=== PATIENT | male | born 1960 | race Caucasian/White ===

== ENCOUNTER 2017-09-17 09:29 | Day surgery (SDC) | payer OTHER, SELFPAY ==
[2017-09-17] MEDS ORDERED: MIDAZOLAM INJ 2 MG/2 ML VIAL (J2250) As Ordered (09:39)
[2017-09-17] MEDS ORDERED: PROPOFOL 200 MG/20 ML VIAL As Ordered (09:39)
[2017-09-17] MEDS ORDERED: fentaNYL 100 MCG/2 ML INJECTION (J3010) As Ordered (09:39)
[2017-09-17] MEDS ORDERED: LIDOCAINE 2% INJ 100 MG/5 ML SDV (FOR ANES.) As Ordered (09:39)
[2017-09-17] MEDS: LR 1,000 ML IV (10:35)
[2017-09-17] MEDS: OXYMETAZOLINE NASAL SPRAY (AFRIN) As Ordered (12:54)
[2017-09-17] MEDS ORDERED: ONDANSETRON 4MG/2ML VIAL (J2405) As Ordered (12:57)
[2017-09-17] MEDS ORDERED: SUCCINYLCHOLINE 100 MG/5 ML SYRINGE (J0330) As Ordered (12:57)
[2017-09-17] MEDS ORDERED: KETOROLAC 60 MG/2 ML VIAL (J1885) As Ordered (12:57)
[2017-09-17] MEDS ORDERED: dexameTHASONE 4 MG/ML 1ML VIAL (J1100) As Ordered ×2 (12:57)
[2017-09-17] MEDS: LIDOCAINE W/EPINEPHRINE 1% 20ML VIAL As Ordered (13:12)
[2017-09-17] MEDS ORDERED: LR 1,000 ML IV ×2 (13:45→14:00)
[2017-09-17] MEDS ORDERED: ONDANSETRON 4MG/2ML VIAL (J2405) IV (13:45)
[2017-09-17] MEDS ORDERED: PERCOCET 5MG/325MG TAB PO (13:45)
[2017-09-17] MEDS ORDERED: fentaNYL 100 MCG/2 ML INJECTION (J3010) IV (13:45)
[2017-09-18] MEDS ORDERED: OMEPRAZOLE 20 MG CAP PO (09:00)
== END 2017-09-17 15:25 | disposition home or self-care (01) ==
LOC: M SDC 09:29
DX: R49.0 Dysphonia (principal); J38.3 Other diseases of vocal cords; M54.2 Cervicalgia; R06.83 Snoring; G47.9 Sleep disorder, unspecified; F10.20 Alcohol dependence, uncomplicated; Z72.0 Tobacco use; Z87.81 Personal history of (healed) traumatic fracture
CPT/HCPCS: 31576

== ENCOUNTER 2017-10-14 15:36 | Outpatient (RCR) | payer OTHER | END 2017-10-27 | LOC: M ONCR 15:36 | DX: C32.9 Malignant neoplasm of larynx, unspecified (principal) | CPT/HCPCS: 77334 ==

== ENCOUNTER → 2017-10-14 | Outpatient (CLI) | payer OTHER | LOC: M ONCR 13:58 | DX: C32.0 Malignant neoplasm of glottis (principal); F17.210 Nicotine dependence, cigarettes, uncomplicated | CPT/HCPCS: G0463 ==

== ENCOUNTER 2017-10-28 09:35 | Outpatient (RCR) | payer OTHER | END 2017-11-27 | LOC: M ONCR 09:35 | DX: C32.9 Malignant neoplasm of larynx, unspecified (principal) | CPT/HCPCS: 77300 ==

== ENCOUNTER 2017-11-28 10:55 | Outpatient (RCR) | payer OTHER | END 2017-12-27 | LOC: M ONCR 10:55 | DX: C32.9 Malignant neoplasm of larynx, unspecified (principal) | CPT/HCPCS: 77336 ==

== ENCOUNTER → 2018-01-14 | Outpatient (CLI) | payer OTHER | LOC: M ONCR 10:30 | DX: C32.9 Malignant neoplasm of larynx, unspecified (principal) | CPT/HCPCS: G0463 ==

== ENCOUNTER 2018-04-07 10:35 | Outpatient (RCR) | payer OTHER | END 2018-04-29 | LOC: M ST 10:35 | DX: C44.320 Squamous cell carcinoma of skin of unspecified parts of face (principal); R49.0 Dysphonia | CPT/HCPCS: 92610 ==

== ENCOUNTER → 2018-04-14 | Outpatient (CLI) | payer OTHER | LOC: M PLARAD 10:32 | DX: C32.0 Malignant neoplasm of glottis (principal) | CPT/HCPCS: 78815 ==

== ENCOUNTER 2018-05-04 10:00 | Outpatient (RCR) | payer OTHER | END 2018-05-29 | LOC: M ST 10:00 | DX: C44.320 Squamous cell carcinoma of skin of unspecified parts of face (principal) ==

== ENCOUNTER → 2018-09-08 | Outpatient (CLI) | payer OTHER ==
--- NOTE | 2018-09-08 18:38 | REP ---
W by low body PET CT scan for restaging malignant tumor was: Comparison is the whole body PET CT scan dated 04/14/2018. Whole-body scanning is performed from skull base to the upper thighs. Neck and supraclavicular areas: Previously there was a tracheostomy tube. On the study today the tracheostomy tube has been removed. However, the tracheostomy persists. The increased uptake noted in the neck previously is no longer present. There are no hypermetabolic foci in the neck. Chest: On the prior study there was non hypermetabolic uptake in a left axillary lymph node. This uptake is no longer present. There are no hypermetabolic foci in the chest. Abdomen, pelvis and upper thighs: There are no hypermetabolic foci. Impression: There are no hypermetabolic foci. The previously identified hypermetabolic activity in the neck and in a left axillary lymph node is no longer present. The study is performed with 8.3 mCi of F 18 FDG. Electronically Signed by Morgan Monson MD 09/08/2018 06:30 P
== END ==
LOC: M PLARAD 12:36
PROVIDERS: ATTEND Otolaryngology
DX: Z48.89 Encounter for other specified surgical aftercare (principal); C32.0 Malignant neoplasm of glottis
CPT/HCPCS: 78815; A9552

== ENCOUNTER 2018-09-17 11:00 | Outpatient (RCR) | payer OTHER | END 2018-09-27 | LOC: M ST 11:00 | PROVIDERS: ATTEND Internal Medicine | DX: C44.320 Squamous cell carcinoma of skin of unspecified parts of face (principal); C32.0 Malignant neoplasm of glottis; R49.0 Dysphonia ==

== ENCOUNTER 2018-11-30 10:32 | Outpatient (RCR) | payer OTHER | END 2018-12-27 | LOC: M ST 10:32 | PROVIDERS: ATTEND Internal Medicine | DX: Z44.8 Encounter for fitting and adjustment of other external prosthetic devices (principal); Z93.0 Tracheostomy status ==

== ENCOUNTER 2019-01-13 09:16 | Outpatient (RCR) | payer OTHER | END 2019-01-27 | LOC: M ST 09:16 | PROVIDERS: ATTEND Internal Medicine | DX: Z44.8 Encounter for fitting and adjustment of other external prosthetic devices (principal); Z93.0 Tracheostomy status ==

== ENCOUNTER → 2019-02-18 | Outpatient (CLI) | payer OTHER | LOC: M ST 14:16 | PROVIDERS: ATTEND Internal Medicine | DX: Z44.8 Encounter for fitting and adjustment of other external prosthetic devices (principal) ==

== ENCOUNTER 2019-05-26 08:30 | Outpatient (RCR) | payer OTHER | END 2019-05-29 | LOC: M ST 08:30 | PROVIDERS: ATTEND Internal Medicine | DX: Z51.89 Encounter for other specified aftercare (principal); C44.320 Squamous cell carcinoma of skin of unspecified parts of face ==

== ENCOUNTER 2019-07-20 12:41 | Outpatient (RCR) | payer OTHER | END 2019-07-30 | LOC: M ST 12:41 | PROVIDERS: ATTEND Internal Medicine | DX: C44.320 Squamous cell carcinoma of skin of unspecified parts of face (principal); Z79.899 Other long term (current) drug therapy; Z92.3 Personal history of irradiation ==

== ENCOUNTER 2019-10-22 11:09 | Outpatient (RCR) | payer OTHER | END 2019-10-28 | LOC: M ST 11:09 | PROVIDERS: ATTEND Internal Medicine | DX: C44.320 Squamous cell carcinoma of skin of unspecified parts of face (principal); Z92.3 Personal history of irradiation; Z44.8 Encounter for fitting and adjustment of other external prosthetic devices; Z93.0 Tracheostomy status ==

== ENCOUNTER → 2019-12-10 | Outpatient (CLI) | payer OTHER ==
[~2019-12-10] MED LIST: SYNT75TA PO
== END ==
LOC: M LABSMTC 13:56
PROVIDERS: ATTEND Anesthesiology
DX: Z01.818 Encounter for other preprocedural examination (principal); Z11.59 Encounter for screening for other viral diseases; Z03.818 Encounter for observation for suspected exposure to other biological agents ruled out
CPT/HCPCS: C9803; U0003

== ENCOUNTER 2019-12-13 07:38 | Day surgery (SDC) | payer OTHER ==
[~2019-12-13] VITALS: Ht 177.8 cm; Wt 80.2 kg
[~2019-12-13 07:38] MED LIST changes: +BALANCED SALT IRRIGATION SOLUTION 500ML BAG (FOR OR EYE MACHINE) As Ordered ONE; +CEFUROXIME 1MG/0.1ML INTRACAMERAL INJ As Ordered ONE; +CYCLOPENTOLATE 2% OPHTH SOLN 2ML BTL OS ONE; +HEALON DUET PRO(HEALON 10MG/ML 0.55ML & HEALON ENDOCOAT 30MG/ML 0.85ML) As Ordered ONE; +LIDOCAINE 1% SDV 5ML VIAL As Ordered ONE; +LIDOCAINE 3.5 % 1ML OPHTH TOPICAL GEL OU ONE; +MIDAZOLAM INJ 2MG/2ML VIAL (J2250 PER 1MG) As Ordered ONE; +OFLOXACIN 0.3 % (OCUFLOX) OPTH SOL 5ML OS ONE; +PHENYLEPHRINE 2.5% OPHTH SOL 2ML OS ONE; +PHENYLEPHRINE HCL 10 % OPHTH. SOL 5ML OS PRN; +POVIDONE-IODINE 5% OPHTH PREP SOL 30ML As Ordered ONE; +TROPICAMIDE 1% OPHTH SOLN 2ML OS ONE; +fentaNYL 250 MCG/5 ML INJECTION (J3010) As Ordered ONE
[2019-12-13] MEDS ORDERED: POVIDONE-IODINE 5% OPHTH PREP SOL 30ML As Ordered ONE (08:41)
[2019-12-13 09:25] VITALS: BP 128/77
--- NOTE | 2019-12-15 05:33 | RO ---
DATE OF PROCEDURE: 12/13/2019 PREPROCEDURE DIAGNOSIS: Age-related nuclear cataract left eye. POSTPROCEDURE DIAGNOSIS: Age-related nuclear cataract left eye. PROCEDURE PERFORMED: Phacoemulsification and posterior chamber intraocular lens implantation left eye. Lens used was an [id number], 13.5 diopter. SURGEON: Corie Andrea MD [employer]OP HANDLE ASSEMBLER: ANESTHESIA: Topical with sedation. DESCRIPTION OF PROCEDURE: The patient was prepped and draped in the usual fashion. A lid speculum was placed between the lids. The eye was fixated. A stab incision was made to the anterior chamber, and 1% nonpreserved lidocaine was instilled. Then, viscoelastic was instilled. The eye was re-fixated. A 2.75 mm sapphire keratome was used to make a clear corneal temporal limbal incision. Capsulorrhexis was begun with a 30-gauge bent needle and then carried out in a circular fashion with capsulorrhexis forceps. The lens was hydrodissected, and then the phacoemulsification unit was used to make a groove in the nucleus in two meridians. The nucleus was then cracked into four quadrants. Each quadrant was removed with the phacoemulsification unit. Any remaining cortex was removed with the irrigation and aspiration (I and A) unit. Capsular bag was refilled with viscoelastic. A posterior chamber intraocular lens was placed in the capsular bag without difficulty. Any remaining viscoelastic was removed with the I and A unit. The wound was hydrated, and Miochol and cefuroxime were instilled into the anterior chamber. The patient tolerated the procedure well and went to the recovery room in stable condition.
== END 2019-12-13 09:39 | disposition home or self-care (01) ==
LOC: M SDC 07:38
PROVIDERS: ATTEND Ophthalmology
DX: H25.12 Age-related nuclear cataract, left eye (principal); E03.9 Hypothyroidism, unspecified; Z79.899 Other long term (current) drug therapy
CPT/HCPCS: 66984; 92015; J2250; J3010

== ENCOUNTER 2019-12-31 13:57 | Outpatient (RCR) | payer OTHER ==
[~2019-12-31 13:57] MED LIST changes: -BALANCED SALT IRRIGATION SOLUTION 500ML BAG (FOR OR EYE MACHINE) As Ordered ONE; -CEFUROXIME 1MG/0.1ML INTRACAMERAL INJ As Ordered ONE; -CYCLOPENTOLATE 2% OPHTH SOLN 2ML BTL OS ONE; -HEALON DUET PRO(HEALON 10MG/ML 0.55ML & HEALON ENDOCOAT 30MG/ML 0.85ML) As Ordered ONE; -LIDOCAINE 1% SDV 5ML VIAL As Ordered ONE; -LIDOCAINE 3.5 % 1ML OPHTH TOPICAL GEL OU ONE; -MIDAZOLAM INJ 2MG/2ML VIAL (J2250 PER 1MG) As Ordered ONE; -OFLOXACIN 0.3 % (OCUFLOX) OPTH SOL 5ML OS ONE; -PHENYLEPHRINE 2.5% OPHTH SOL 2ML OS ONE; -PHENYLEPHRINE HCL 10 % OPHTH. SOL 5ML OS PRN; -POVIDONE-IODINE 5% OPHTH PREP SOL 30ML As Ordered ONE; -TROPICAMIDE 1% OPHTH SOLN 2ML OS ONE; -fentaNYL 250 MCG/5 ML INJECTION (J3010) As Ordered ONE
== END 2020-01-28 ==
LOC: M ST 13:57
PROVIDERS: ATTEND Internal Medicine
DX: C44.320 Squamous cell carcinoma of skin of unspecified parts of face (principal); Z92.3 Personal history of irradiation; Z44.8 Encounter for fitting and adjustment of other external prosthetic devices; Z93.0 Tracheostomy status

== ENCOUNTER 2020-04-11 14:04 | Outpatient (RCR) | payer OTHER | END 2020-04-29 | LOC: M ST 14:04 | PROVIDERS: ATTEND Internal Medicine | DX: C44.320 Squamous cell carcinoma of skin of unspecified parts of face (principal); Z92.3 Personal history of irradiation; Z44.8 Encounter for fitting and adjustment of other external prosthetic devices; Z93.0 Tracheostomy status ==

== ENCOUNTER → 2020-05-27 | Outpatient (CLI) | payer OTHER | LOC: M LABSMTC 08:25 | PROVIDERS: ATTEND Anesthesiology | DX: Z01.812 Encounter for preprocedural laboratory examination (principal); Z20.828 Contact with and (suspected) exposure to other viral communicable diseases ==

== ENCOUNTER 2020-06-01 10:35 | Day surgery (SDC) | payer OTHER ==
[~2020-06-01] VITALS: Ht 177.8 cm; Wt 83.5 kg
[~2020-06-01 10:35] MED LIST changes: +NS 1,000 ML IV ONE
[2020-06-01] MEDS ORDERED: LIDOCAINE 2% 100MG/5ML SDV (FOR ANES.) As Ordered ONE (11:20)
[2020-06-01] MEDS ORDERED: propofoL 200 MG/20 ML VIAL As Ordered ONE (11:20)
--- NOTE | 2020-06-01 12:46 | ROOR ---
Patient Name: Jose Hylton Procedure Date: 06/01/2020 12:24 PM Date of : 1960 Age: 60 Room: [facility] Gender: Male Note Status: Finalized Procedure: Colonoscopy Indications: Screening for colorectal malignant neoplasm Providers: Noe Pratt Jr, MD Referring MD: ROSITA BECKER MD Requesting Provider: Medicines: Propofol per Anesthesia Complications: No immediate complications. Procedure: Pre-Anesthesia Assessment: - Prior to the procedure, a History and Physical was performed, and patient medications and allergies were reviewed. The patient is competent. The risks and benefits of the procedure and the sedation options and risks were discussed with the patient. All questions were answered and informed consent was obtained. Patient identification and proposed procedure were verified by the physician and the nurse in the pre-procedure area and in the procedure room. Mental Status Examination: alert and oriented. Airway Examination: normal oropharyngeal airway and neck mobility. Respiratory Examination: clear to auscultation. CV Examination: normal. ASA Grade Assessment: II - A patient with mild systemic disease. After reviewing the risks and benefits, the patient was deemed in satisfactory condition to undergo the procedure. The anesthesia plan was to use moderate sedation / analgesia (conscious sedation). Immediately prior to administration of medications, the patient was re-assessed for adequacy to receive sedatives. The heart rate, respiratory rate, oxygen saturations, blood pressure, adequacy of pulmonary ventilation, and response to care were monitored throughout the procedure. The physical status of the patient was re-assessed after the procedure. The Colonoscope was introduced through the anus and advanced to the cecum, identified by appendiceal orifice and ileocecal valve. The colonoscopy was performed without difficulty. The patient tolerated the procedure well. The quality of the bowel preparation was adequate. Findings: The recto-sigmoid colon, descending colon, transverse colon, ascending colon, cecum, appendiceal orifice and ileocecal valve appeared normal. Multiple small and large-mouthed diverticula were found in the sigmoid colon. A small polyp was found in the rectum. The polyp was removed with a cold snare. Resection and retrieval were complete. For hemostasis, one hemostatic clip was successfully placed. There was no bleeding at the end of the procedure. Impression: - The recto-sigmoid colon, descending colon, transverse colon, ascending colon, cecum, appendiceal orifice and ileocecal valve are normal. - Diverticulosis in the sigmoid colon. - One small polyp in the rectum, removed with a cold snare. Resected and retrieved. Clip was placed. Recommendation: - Discharge patient to home (ambulatory). - Repeat colonoscopy in 5 years for surveillance. Procedure Code(s): --- Professional --- 40028, Colonoscopy, flexible; with removal of tumor(s), polyp(s), or other lesion(s) by snare technique Diagnosis Code(s): --- Professional --- Z12.11, Encounter for screening for malignant neoplasm of colon K62.1, Rectal polyp K57.30, Diverticulosis of large intestine without perforation or abscess without bleeding CPT copyright 2019 [employer]. All rights reserved. The codes documented in this report are preliminary and upon economic analyst review may be revised to meet current compliance requirements. Noe Pratt MD Noe Pratt Jr, MD 06/01/2020 12:45:41 PM Electronically signed by Noe Pratt Jr, MD Number of Addenda: 0 Note Initiated On: 06/01/2020 12:24 PM Estimated Blood Loss: Estimated blood loss: none.
[2020-06-01 13:10] VITALS: BP 138/91
== END 2020-06-01 13:26 | disposition home or self-care (01) ==
LOC: M OPP 10:35
PROVIDERS: ATTEND Surgery
DX: Z12.11 Encounter for screening for malignant neoplasm of colon (principal); K57.30 Diverticulosis of large intestine without perforation or abscess without bleeding; K62.1 Rectal polyp; E03.9 Hypothyroidism, unspecified; Z79.899 Other long term (current) drug therapy; Z85.21 Personal history of malignant neoplasm of larynx; Z87.891 Personal history of nicotine dependence

== ENCOUNTER 2020-09-05 09:30 | Outpatient (RCR) | payer OTHER ==
[~2020-09-05 09:30] MED LIST changes: -NS 1,000 ML IV ONE
== END 2020-09-27 ==
LOC: M ST 09:30
PROVIDERS: ATTEND Internal Medicine
DX: C44.320 Squamous cell carcinoma of skin of unspecified parts of face (principal); Z92.3 Personal history of irradiation; Z44.8 Encounter for fitting and adjustment of other external prosthetic devices; Z93.0 Tracheostomy status

== ENCOUNTER 2020-12-21 14:05 | Outpatient (RCR) | payer OTHER | END 2020-12-27 | LOC: M ST 14:05 | PROVIDERS: ATTEND Internal Medicine | DX: C44.320 Squamous cell carcinoma of skin of unspecified parts of face (principal); Z92.3 Personal history of irradiation; Z44.8 Encounter for fitting and adjustment of other external prosthetic devices ==

== ENCOUNTER → 2021-04-06 | Outpatient (CLI) | payer OTHER | LOC: M ST 10:16 | PROVIDERS: ATTEND Otolaryngology | DX: Z44.8 Encounter for fitting and adjustment of other external prosthetic devices (principal) ==

== ENCOUNTER 2021-08-02 08:01 | Outpatient (RCR) | payer OTHER | END 2021-08-27 | LOC: M ST 08:01 | PROVIDERS: ATTEND Family Medicine | DX: Z90.02 Acquired absence of larynx (principal); Z96.3 Presence of artificial larynx ==

== ENCOUNTER 2021-10-03 08:58 | Outpatient (RCR) | payer OTHER | END 2021-10-27 | LOC: M ST 08:58 | PROVIDERS: ATTEND Family Medicine | DX: C44.320 Squamous cell carcinoma of skin of unspecified parts of face (principal); Z92.3 Personal history of irradiation; Z44.8 Encounter for fitting and adjustment of other external prosthetic devices; Z93.0 Tracheostomy status ==

== ENCOUNTER 2021-12-12 10:17 | Outpatient (RCR) | payer OTHER | END 2021-12-27 | LOC: M ST 10:17 | PROVIDERS: ATTEND Family Medicine | DX: Z90.02 Acquired absence of larynx (principal); Z96.3 Presence of artificial larynx ==

== ENCOUNTER 2022-02-05 08:24 | Outpatient (RCR) | payer OTHER | END 2022-02-27 | LOC: M ST 08:24 | PROVIDERS: ATTEND Family Medicine | DX: Z90.02 Acquired absence of larynx (principal); Z96.3 Presence of artificial larynx ==

== ENCOUNTER 2022-04-03 08:27 | Outpatient (RCR) | payer OTHER | END 2022-04-29 | LOC: M ST 08:27 | PROVIDERS: ATTEND Family Medicine | DX: Z90.02 Acquired absence of larynx (principal); Z96.3 Presence of artificial larynx ==

== ENCOUNTER 2022-06-20 07:27 | Outpatient (RCR) | payer OTHER | END 2022-06-29 | LOC: M ST 07:27 | PROVIDERS: ATTEND Family Medicine | DX: Z90.02 Acquired absence of larynx (principal); Z96.3 Presence of artificial larynx ==

== ENCOUNTER 2022-09-11 14:02 | Outpatient (RCR) | payer OTHER | END 2022-09-27 | LOC: M ST 14:02 | PROVIDERS: ATTEND Family Medicine | DX: Z96.3 Presence of artificial larynx (principal) ==

== ENCOUNTER 2023-02-17 09:15 | Outpatient (RCR) | payer OTHER | END 2023-02-27 | LOC: M ST 09:15 | PROVIDERS: ATTEND Otolaryngology | DX: Z96.3 Presence of artificial larynx (principal) ==

== ENCOUNTER 2023-06-17 10:54 | Outpatient (RCR) | payer OTHER, MEDICARE | END 2023-06-29 | LOC: M ST 10:54 | PROVIDERS: ATTEND Otolaryngology | DX: Z96.3 Presence of artificial larynx (principal) ==

== ENCOUNTER 2023-07-18 10:50 | Outpatient (RCR) | payer OTHER | END 2023-07-30 | LOC: M ST 10:50 | PROVIDERS: ATTEND Otolaryngology | DX: Z96.3 Presence of artificial larynx (principal) ==

== ENCOUNTER 2023-09-09 08:50 | Outpatient (RCR) | payer OTHER | END 2023-09-28 | LOC: M ST 08:50 | PROVIDERS: ATTEND Otolaryngology | DX: Z96.3 Presence of artificial larynx (principal) ==

== ENCOUNTER 2023-11-07 09:16 | Outpatient (RCR) | payer OTHER, MEDICARE | END 2023-11-28 | LOC: M ST 09:16 | PROVIDERS: ATTEND Otolaryngology | DX: Z96.3 Presence of artificial larynx (principal) ==

== ENCOUNTER 2023-12-31 13:44 | Outpatient (RCR) | payer OTHER, MEDICARE | END 2024-01-28 | LOC: M ST 13:44 | PROVIDERS: ATTEND Otolaryngology | DX: Z96.3 Presence of artificial larynx (principal) ==

== ENCOUNTER 2024-04-28 09:31 | Outpatient (RCR) | payer OTHER, MEDICARE | END 2024-04-29 | LOC: M ST 09:31 | PROVIDERS: ATTEND Family Medicine | DX: Z96.3 Presence of artificial larynx (principal) ==

== ENCOUNTER 2024-06-16 10:16 | Outpatient (RCR) | payer OTHER, MEDICARE | END 2024-06-29 | LOC: M ST 10:16 | PROVIDERS: ATTEND Family Medicine | DX: Z90.02 Acquired absence of larynx (principal); Z96.3 Presence of artificial larynx ==

== ENCOUNTER 2024-08-20 07:55 | Outpatient (RCR) | payer OTHER, MEDICARE | END 2024-08-27 | LOC: M ST 07:55 | PROVIDERS: ATTEND Family Medicine | DX: Z90.02 Acquired absence of larynx (principal); Z96.3 Presence of artificial larynx ==

== ENCOUNTER 2024-10-01 08:08 | Outpatient (RCR) | payer OTHER, MEDICARE | END 2024-10-27 | LOC: M ST 08:08 | PROVIDERS: ATTEND Otolaryngology | DX: Z90.02 Acquired absence of larynx (principal); Z96.3 Presence of artificial larynx ==

== ENCOUNTER 2025-01-25 08:00 | Outpatient (RCR) | payer OTHER, MEDICARE | END 2025-01-27 | LOC: M ST 08:00 | PROVIDERS: ATTEND Otolaryngology | DX: Z96.3 Presence of artificial larynx (principal) ==

== ENCOUNTER 2025-02-08 07:58 | Outpatient (RCR) | payer OTHER, MEDICARE | END 2025-02-27 | LOC: M ST 07:58 | PROVIDERS: ATTEND Otolaryngology | DX: Z96.3 Presence of artificial larynx (principal) ==

== ENCOUNTER 2025-05-30 10:59 | Outpatient (RCR) | payer OTHER, MEDICARE ==
[2025-06-28] MEDS ORDERED: MELO15TA28 PO (08:12)
[2025-06-28] MEDS ORDERED: PANT20TA6 PO (08:12)
[2025-06-28] MEDS ORDERED: ROSU20TA86 PO (08:12)
[2025-06-28] MEDS ORDERED: VITA100093 PO (08:12)
== END 2025-06-29 ==
LOC: M ST 10:59
PROVIDERS: ATTEND Otolaryngology
DX: R41.89 Other symptoms and signs involving cognitive functions and awareness (principal)